=== PATIENT | female | born 1980 | race African-American/Black ===

== ENCOUNTER 2019-12-25 18:33 | Emergency (ER) | payer BC, SELFPAY ==
--- NOTE | ~2019-12-25 | XR_ITS ---
EXAMINATION: XR chest 2V EXAM DATE: 12/25/2019 19:09 INDICATION: Shortness of breath, chest congestion. Headache. COVID 19 exposure. TECHNIQUE: Frontal and lateral projections of the chest obtained and reviewed. There is no prior kareem dy for comparison. FINDINGS: The lungs are clear. There are no pleural effusions. The cardiomediastinal silhouette is within normal limits. There is no pneumothorax suspected. The bones and soft tissues are unremarkab le. IMPRESSION: No acute cardiopulmonary findings. Reviewed, dictated and finalized at location A.
--- NOTE | 2019-12-25 18:43 | ED.URI ---
HPI - URI/Sore Throat General Chief Complaint: Upper Respiratory Infection Stated Complaint: chest congestion/headache/weakness Time Seen by Provider: 12/25/19 18:43 Source: patient and RN notes reviewed History of Present Illness HPI Narrative: Patient is a 39-year-old female presents the urgent care with complaints of shortness of breath, chest congestion, headache, weakness. Patient states that her daughter tested positive yesterday for COVID-19. States that her symptoms started a few days prior. Patient states that her daughter does live with her and is currently 8 months , trying to recover at home. States that daughter has been tolerating well and remained quarantined in a different room of the house. States that her daughter has been relying on her albuterol inhaler. Patient reports of shortness of breath and is visibly anxious. Patient has been taking Tylenol for her headaches as well as ibuprofen. Patient states that the headaches and fatigue seem to be very persistent but she has been able to catch her breath . Patient currently denies any chest pain, fever, nausea, vomiting, abdominal pain. No other acute complaints. Patient with plantar. Related Data Home Medications Medication Instructions Recorded Confirmed hydroxyzine pamoate 25 mg PO HS 07/17/19 12/25/19 escitalopram oxalate 5 mg PO DAILY 09/20/19 12/25/19 acyclovir 400 mg PO BID 12/25/19 12/25/19 aripiprazole 10 mg PO DAILY 12/25/19 12/25/19 prazosin 1 mg PO DAILY 12/25/19 12/25/19 saliva substitute comb no.11 351 mg PO DAILY 12/25/19 12/25/19 [SalivaMAX] venlafaxine 75 mg PO DAILY 12/25/19 12/25/19 Allergies Allergy/AdvReac Type Severity Reaction Status Date / Time cabbage Allergy Unknown Verified 12/25/19 18:39 Sulfa (Sulfonamide AdvReac Unknown Itching Verified 12/25/19 18:39 Antibiotics) hydrocodone AdvReac Itching Verified 12/25/19 18:39 Review of Systems Review of Systems: Narrative: CONSTITUTIONAL: Denies fever, chills, or sweats. EYES: Denies visual changes, redness, or discharge. ENT: Denies rhinorrhea, congestion, sore throat, or otalgia. CARDIOVASCULAR: Denies chest pain, palpitations, or edema. RESPIRATORY: Reports of chest congestion and dyspnea without cough or wheezing GASTROINTESTINAL: Denies abdominal pain, nausea, vomiting, or diarrhea. GENITOURINARY: Denies dysuria or hematuria. SKIN: Denies rash or itching. MUSCULOSKELETAL: Reports of fatigue NEUROLOGIC: Reports of headache All other systems reviewed are negative, except as documented in HPI. PMFSH Social History Social History Gender identity (if verbalized by the patient): Female Comments At the time of my signature, I reviewed and agree with the nursing past medical, surgical, social, and family history. There is no relevant family history pertinent to the patient complaint. Exam Narrative: Exam Narrative: GENERAL: This is a well-nourished, well-developed patient, in no apparent distress. HEAD: normocephalic, atraumatic. EYES: PERRL. Sclera clear/white. Vision is grossly intact. EARS: External ears normal, auditory canals clear and without drainage, TMs normal without perforation. Hearing grossly intact. NOSE: External nose normal with no obvious nasal discharge, nares without redness, no rhinorrhea. THROAT: Mucous membranes moist, mild erythema noted posterior oropharynx with moderate postnasal drainage NECK: Neck supple, non-tender without lymphadenopathy, masses or thyromegaly. CARDIOVASCULAR: Regular rate and rhythm without murmurs, gallops, or rubs. RESPIRATORY: Clear to auscultation. Slightly diminished lower lung sounds. No wheezes, rales, or rhonchi. SKIN: warm, intact with no suspicious lesions or rash, good texture and turgor. NEURO: awake, alert, and oriented to person, place and time. There were no obvious focal neurologic abnormalities. EXTREMITIES: No clubbing, cyanosis, or edema. Course
[2019-12-25 18:45] VITALS: BP 142/89; PULSE 85; RESP 23; TEMP 37; O2SAT 100
== END 2019-12-25 19:48 | disposition home or self-care (01) ==
PROVIDERS: Emergency Provider Nurse Practitioner Family
DX: R06.02 Shortness of breath (principal); R53.83 Other fatigue; R51 Headache; Z20.828 Contact with and (suspected) exposure to other viral communicable diseases; F43.10 Post-traumatic stress disorder, unspecified; F41.9 Anxiety disorder, unspecified; F32.9 Major depressive disorder, single episode, unspecified
CPT/HCPCS: 71046; 99213; G0463

== ENCOUNTER 2023-06-05 09:11 | Emergency (ER) | payer OTHER, BC, SELFPAY ==
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
[2023-06-05 09:29] VITALS: BP 131/77; PULSE 82; RESP 18; TEMP 36.6; O2SAT 99
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
[2023-06-05] MEDS: KETOROLAC 30 MG/ML VIAL (*BKC) IM (10:28)
[2023-06-05] MEDS: ACETAMINOPHEN 500 MG TABLET 1000 MG PO (10:29)
== END 2023-06-05 11:05 | disposition home or self-care (01) ==
PROVIDERS: Emergency Provider Physician Assistant; PCP Pediatrics
DX: S13.4XXA Sprain of ligaments of cervical spine, initial encounter (principal); F41.9 Anxiety disorder, unspecified; F32.A Depression, unspecified; V89.2XXA Person injured in unspecified motor-vehicle accident, traffic, initial encounter
CPT/HCPCS: 70450; 72125; 96372; 99284; A9270; J1885; L0140